=== PATIENT | female | born 1995 | race Caucasian/White ===

== ENCOUNTER 2020-03-30 12:08 | Emergency (ER) | payer OTHER, SELFPAY ==
[2020-03-30 12:30] VITALS: BP 133/80; PULSE 100; RESP 20; TEMP 37.4; O2SAT 100
--- NOTE | 2020-03-30 14:21 | ED.URI ---
HPI - URI/Sore Throat General Chief Complaint: Upper Respiratory Infection Stated Complaint: Head and ears (COVID Exposure) Source: patient Mode of arrival: ambulatory Limitations: no limitations History of Present Illness MD elicited complaint: other (Chest tightness, shortness of breath) Review of Systems Review of Systems: Narrative: CONSTITUTIONAL: Denies fever, chills, or sweats. EYES: Denies visual changes, redness, or discharge. ENT: Reports congestion, loss of taste and smell CARDIOVASCULAR: Reports chest heaviness. RESPIRATORY: Reports cough and dyspnea. GASTROINTESTINAL: Denies abdominal pain, nausea, vomiting, or diarrhea. GENITOURINARY: Denies dysuria or hematuria. SKIN: Denies rash or itching. MUSCULOSKELETAL: Denies back pain, joint pain, or myalgia. NEUROLOGIC: Denies headache, numbness, dizziness, or weakness. PSYCHIATRIC: Denies anxiety or depression. [facility] Past Medical History Medical History (Updated 03/30/20 @ 14:47 by CECE Vanegas) No significant past medical history Surgical History Surgical History (Updated 03/30/20 @ 14:28 by CECE Vanegas) No significant past surgical history Family History Family History (Updated 03/30/20 @ 14:29 by CECE Vanegas) Other No significant family history Social History Social History (Updated 03/30/20 @ 14:43 by CECE Vanegas) Smoking status: Never smoker Alcohol intake: never Substance use: never Living arrangements: with family Exam Narrative: Exam Narrative: GENERAL: Well-appearing, well-nourished, and in no acute distress. HEAD: Normocephalic, atraumatic. EYES: EOMI. No redness or drainage. Conjunctiva are normal. ENT: Mucous membranes pink and moist. CHEST: No respiratory distress. Clear to auscultation. HEART: Regular rate and rhythm. EXTREMITIES: Normal range of motion. No edema. SKIN: Warm, dry, no rash. NEURO: No focal deficits. Alert and oriented x3. Gait steady. PSYCH: Normal affect. No signs of depression or anxiety. Course Vital Signs Vital signs: Vital Signs Temperature 37.4 C 03/30/20 12:30 Pulse Rate 100 03/30/20 12:30 Respiratory Rate 20 03/30/20 12:30 Blood Pressure 133/80 03/30/20 12:30 Pulse Oximetry 100 03/30/20 12:30 Temperature 37.4 C 03/30/20 12:30 Pulse Rate 100 03/30/20 12:30 Respiratory Rate 20 03/30/20 12:30 Blood Pressure 133/80 03/30/20 12:30 Pulse Oximetry 100 03/30/20 12:30 Reviewed. Patient has been instructed to follow-up with her PCP regarding her blood pressure. Transfer Transfered to: [facility] Transportation: Other (Personal vehicle, patient refuses [facility] by EMS) Transfer rationale: Higher level care and further diagnostic testing Accepting physician: Dr. Rdz, report given to PHOENIX Acuna at 1330 MDM - URI/Sore Throat [facility] Narrative Medical decision making narrative: Patient to be sent for further evaluation because of chest pain and shortness of breath in the emergency department. Patient agrees. Patient to go to [facility] at this time for further diagnostic testing and observation. Patient is aware that she is presumed positive Covid as has been was positive on 03/23. Patient instructed to go directly to the ED. patient is stable for transfer to the ED by private vehicle as she requests. Differential Diagnosis Differential diagnosis: Likely upper respiratory infection, sinusitis, viral infection, bronchitis and pharyngitis Lab Data Labs: Influenza A Screen Negative Reference Range: Negative Influenza B Screen Negative Reference Range: Negative Strep Screen Presumptive Negative *(Reference Range: Negative)* Critical Care Time Critical Care Time Critical Care Time: No Discharge Plan Discharge Clinical Impression:
== END 2020-03-30 13:30 | disposition short-term general hospital (02) ==
LOC: EXPBETH 12:23
PROVIDERS: Emergency Provider Nurse Practitioner; PCP Internal Medicine
DX: J06.9 Acute upper respiratory infection, unspecified (principal)
CPT/HCPCS: 87081; 87147; 87804; 87880; 99213; G0463

== ENCOUNTER 2020-05-17 08:17 | Emergency (ER) | payer OTHER, SELFPAY ==
[2020-05-17 08:25] VITALS: BP 150/84; PULSE 96; RESP 20; TEMP 36.4; O2SAT 100
--- NOTE | 2020-05-17 08:42 | ED.GENADULT ---
HPI - General Adult General Chief complaint: Ear Stated complaint: ear inf Source: patient Mode of arrival: ambulatory Limitations: no limitations History of Present Illness HPI narrative: Patient presents for evaluation of bilateral ear pain, left greater than the right for the last week. She noted a small amount of drainage from the left ear and middle of the week. She denies any tinnitus or hearing loss. She states her symptoms are worse when laying down and improved when sitting up. She has mild sinus congestion. She denies fever, chills, respiratory symptoms. No additional complaints or concerns. Related Data Home Medications Medication Instructions Recorded Confirmed norethindrone-e.estradiol-iron tablet 05/17/20 05/17/20 [04/29 (28)] Allergies Allergy/AdvReac Type Severity Reaction Status Date / Time Penicillins Allergy Hives Verified 05/17/20 08:28 Review of Systems Review of Systems: Narrative: CONSTITUTIONAL: Denies fever, chills, or sweats. EYES: Denies visual changes, redness, or discharge. ENT: Reports bilateral ear pain, left greater than the right. Reports clear drainage from left ear last week, now resolved. Reports mild sinus congestion. Denies sore throat. CARDIOVASCULAR: Denies chest pain, palpitations, or edema. RESPIRATORY: Denies cough or dyspnea. GASTROINTESTINAL: Denies abdominal pain, nausea, vomiting, or diarrhea. GENITOURINARY: Denies dysuria or hematuria. SKIN: Denies rash or itching. MUSCULOSKELETAL: Denies back pain, joint pain, or myalgia. NEUROLOGIC: Denies headache, numbness, dizziness, or weakness. PSYCHIATRIC: Denies anxiety or depression. [facility] Past Medical History Medical History No significant past medical history Surgical History Surgical History No significant past surgical history Family History Family History Mother No significant family history Father No significant family history Social History Social History Smoking status: Never smoker Alcohol intake: never Substance use: never Living arrangements: with family Gender identity (if verbalized by the patient): Female Sexual Orientation (if Verbalized by the Patient): Straight or Heterosexual Spiritual care concerns: No Exam Narrative: Exam Narrative: GENERAL: Well-appearing, well-nourished, and in no acute distress. HEAD: Normocephalic, atraumatic. EYES: PERRLA and EOMI. ENT: Nares clear, no rhinorrhea or epistaxis. Mucous membranes moist. Oropharynx without tonsillar hypertrophy exudate or other lesions. There is right middle ear fluid present. Pt has pain with movement of left pinna. There appears to be a TM perforation on left between 6-8 o'clock over her anatomical structure of ear canal partially obscures this for full visualization, further compounded by limited exam 2/2 pain. NECK: Supple. No adenopathy or masses. No carotid bruits or JVD CHEST: Clear to auscultation. No respiratory distress. No wheezes rales or rhonchi HEART: Regular rate and rhythm. No murmur heard. Normal peripheral pulses. ABDOMEN: Soft, nontender, nondistended, normal active bowel sounds. EXTREMITIES: Normal range of motion. No edema. SKIN: Warm, dry, no rash. NEURO: No focal deficits. Alert and oriented x3. PSYCH: Normal mood and affect. Course Course Emergency Course: This is a 24-year-old female who presents with bilateral ear pain, left greater than the right for the last week. She has had some clear drainage from the left ear. On physical exam there appears to be a perforation left TM from 6 to 8 o'clock position. However exam is somewhat limited due to swelling appearance of her ear canal, compounded by lack of tolerance of full exam secondary to pain.
== END 2020-05-17 09:06 | disposition home or self-care (01) ==
PROVIDERS: Emergency Provider Nurse Practitioner; PCP Internal Medicine
DX: H66.92 Otitis media, unspecified, left ear (principal)
CPT/HCPCS: 99213; G0463

== ENCOUNTER 2020-06-10 15:17 | Emergency (ER) | payer OTHER, SELFPAY ==
[2020-06-10 15:30] VITALS: BP 163/89; PULSE 114; RESP 14; TEMP 38; O2SAT 100
[2020-06-10 15:44] VITALS: BP 163/89; PULSE 114; RESP 14; TEMP 38; O2SAT 100
--- NOTE | 2020-06-10 16:08 | ED.EAR ---
HPI - Ear Problem General Chief complaint: Ear Stated complaint: Ear Infection Time Seen by Provider: 06/10/20 16:09 Source: patient and RN notes reviewed Mode of arrival: ambulatory Limitations: no limitations History of Present Illness HPI Narrative: 24 year old female who presents to [facility] care with complaints of fullness to her bilateral ears for the past 5 days with noted popping of her ears for the past 2 days. Patient denies any tinnitus or any hearing loss.Patient was seen in this clinic on May 17 and received antibiotic and ear drops which she states that she completed as prescribed. Patient reports that she has been taking some Tylenol sinus for her symptoms with no resolution of her symptoms. She reports also feelings of being dizzy at times. She denies any cough, no sore throat pain but does have some post nasal drainage, denies any shortness of breath. MD Complaint: other (ear popping and pressure) Location: left ear Duration: intermittent Severity: moderate Relieving factors: nothing Exacerbating factors: nothing Discharge from ear: Reports no Associated symptoms ear: rhinorrhea (post nasal drainage) Treatment prior to arrival: other (Tylenol sinus) Related Data Home Medications Medication Instructions Recorded Confirmed norethindrone-e.estradiol-iron 1 tablet PO DAILY 06/10/20 06/10/20 [04/29 (28)] Allergies Allergy/AdvReac Type Severity Reaction Status Date / Time Penicillins Allergy Hives Verified 06/10/20 15:42 Review of Systems Review of Systems: Narrative: CONSTITUTIONAL: Denies known fever, chills, or sweats.is febrile at 38C at triage EYES: Denies visual changes, redness, or discharge. ENT: Denies rhinorrhea, congestion, sore throat, or otalgia.voices fullness popping to ears CARDIOVASCULAR: Denies chest pain, palpitations, or edema. RESPIRATORY: Denies cough or dyspnea. GASTROINTESTINAL: Denies abdominal pain, nausea, vomiting, or diarrhea. GENITOURINARY: Denies dysuria or hematuria. SKIN: Denies rash or itching. MUSCULOSKELETAL: Denies back pain, joint pain, or myalgia. NEUROLOGIC: Denies headache, numbness, or weakness.intermittent dizziness voiced PSYCHIATRIC: Denies anxiety or depression. All systems reviewed & are unremarkable except as noted in HPI and below PMFSH Past Medical History Medical History (Updated 06/12/20 @ 09:54 by Bella Sanderson NP) COVID-19 recovered No significant past medical history Surgical History Surgical History (Updated 06/12/20 @ 09:54 by Bella Sanderson NP) H/O arthroscopy of left knee Family History Family History Mother No significant family history Father No significant family history Social History Social History Smoking status: Never smoker Alcohol intake: never Substance use: never Gender identity (if verbalized by the patient): Female Spiritual care concerns: No Comments At time of signature, agree with nursing past medical, surgical, social and family history. There is no relevant family history pertinent to the presenting complaint Exam Narrative: Exam Narrative: GENERAL: Well-appearing, well-nourished, and in no acute distress. HEAD: Normocephalic, atraumatic. EYES: PERRLA and EOMI.no nystagmus ENT: Nares clear, no rhinorrhea or epistaxis.post nasal drainage Mucous membranes moist.Right TM normal with dull light reflex, Left TM has partial perforation between 6 and 8 o'clock with dullness of membrane, no drainage noted or swelling of ear canal. NECK: Supple.no lymphadenopathy CHEST: Clear to auscultation. No respiratory distress.SAO2 100% on room air HEART: Regular rate and rhythm. No murmur heard. Normal peripheral pulses. ABDOMEN: Soft, nontender, nondistended, normal active bowel sounds. EXTREMITIES: Normal range of motion. No edema. SKIN: Warm, dry, no rash. NEURO: No focal deficits. A
== END 2020-06-10 16:33 | disposition home or self-care (01) ==
PROVIDERS: Emergency Provider Registered Nurse
DX: H66.92 Otitis media, unspecified, left ear (principal); J06.9 Acute upper respiratory infection, unspecified; Z86.16 Personal history of COVID-19
CPT/HCPCS: 99213; G0463

== ENCOUNTER 2022-04-29 09:34 | Emergency (ER) | payer OTHER, SELFPAY ==
[2022-04-29 09:42] VITALS: BP 118/74; PULSE 82; RESP 16; TEMP 36.9; O2SAT 99
--- NOTE | 2022-04-29 10:22 | ED.URI ---
HPI - URI/Sore Throat General Chief Complaint: Upper Respiratory Infection Stated Complaint: sinus congestion/sore throat Time Seen by Provider: 04/29/22 10:22 Source: patient, RN notes reviewed and old records reviewed Mode of arrival: ambulatory Limitations: no limitations History of Present Illness HPI Narrative: 26 year old female who presents to [facility] care with complaints of 10 day history of sinus drainage and congestion with sore throat for one week with cough and headache for past 5 days. Patient reports that she has had had thick nasal congestion and post nasal drainage in throat. Patient denies any ear pain or any shortness of breath has been taking DayQuil and Ibuprofen for her symptoms. Patient has taken 2 home COVID tests which were negative. Patient has had COVID vaccinations and Booster, no flu shot. MD elicited complaint: sore throat, rhinorrhea, nasal congestion, sinus pain and other (headache) Onset (ago): day(s) (10) Pain scale (0-10): 4 Able to tolerate fluids by mouth: Yes Treatments prior to arrival: ibuprofen (bu) and other (DayQuil) Related Data Home Medications Medication Instructions Recorded Confirmed norethindrone 1 mg-ethinyl 1 tablet PO DAILY 04/29/22 04/29/22 estradiol 20 mcg (21)-iron 75 mg (7) tablet (Blisovi Fe 04/29 (28)) sertraline 100 mg tablet 100 mg PO DAILY 04/29/22 04/29/22 Allergies Allergy/AdvReac Type Severity Reaction Status Date / Time Penicillins Allergy Intermediate Hives Verified 04/29/22 09:58 Review of Systems Review of Systems: CONSTITUTIONAL: Denies malaise, chills, sweats, or fever. EYES: Denies visual changes, redness, or discharge. ENT: Reports rhinorrhea, congestion, sinus pain, no otalgia positive for sore throat. CARDIOVASCULAR: Denies chest pain, palpitations, or edema. RESPIRATORY: Reports cough.? Denies dyspnea. GASTROINTESTINAL: Denies abdominal pain, nausea, vomiting, diarrhea SKIN: Denies rash or itching. MUSCULOSKELETAL: Denies myalgia. NEUROLOGIC: Reports headache. All systems reviewed & are unremarkable except as noted in HPI and below PMFSH Past Medical History Medical History (Updated 04/30/22 @ 07:45 by Bella Sanderson NP) Anxiety COVID-19 recovered Surgical History Surgical History (Updated 04/30/22 @ 07:46 by Bella Sanderson NP) H/O arthroscopy of left knee ACL repair Family History Family History Mother No significant family history Father No significant family history Social History Social History Smoking status: Never smoker Alcohol intake: never Substance use: never Living arrangements: with family Gender identity (if verbalized by the patient): Female Sexual Orientation (if Verbalized by the Patient): Straight or Heterosexual Spiritual care concerns: No Comments At time of signature, agree with nursing past medical, surgical, social and family history. There is no relevant family history pertinent to the presenting complaint Exam Narrative: GENERAL: Well-appearing, well-nourished, and in no acute distress. HEAD: Normocephalic EYES: PERRLA, conjunctivae clear ENT: Nares clear, turbinates edematous and erythematous, clear discharge, sinus pressure and frontal headache. Mucous membranes moist. TM pearly downey with dull light reflex bilaterally; no tragal tenderness. Oropharynx erythematous without lesions. Tonsils not enlarged and without exudate, no drooling, no hoarseness, no trismus, uvula midline.post nasal drainage thick brown and yellow. NECK: Supple. No lymphadenopathy CHEST: Clear to auscultation, breath sounds equal. No wheezing, rhonchi, rales, or stridor. No respiratory distress, speaks in full sentences.cough, SAO2 99% on room air HEART: Regular rate and rhythm. No murmur heard. SKIN: Warm, dry, no rash. NEURO: Alert and oriented x3. PSYCH: N
== END 2022-04-29 10:42 | disposition home or self-care (01) ==
PROVIDERS: Emergency Provider Registered Nurse
DX: J32.9 Chronic sinusitis, unspecified (principal); R05.9 Cough, unspecified
CPT/HCPCS: 99213; G0463

== ENCOUNTER 2023-05-13 17:01 | Emergency (ER) | payer OTHER, SELFPAY ==
[2023-05-13 17:16] VITALS: BP 134/85; PULSE 114; RESP 16; TEMP 36.7; O2SAT 100
--- NOTE | 2023-05-13 17:59 | ED.URI ---
HPI - URI/Sore Throat General Chief Complaint: Upper Respiratory Infection Stated Complaint: throat Time Seen by Provider: 05/13/23 17:40 Source: patient, RN notes reviewed and old records reviewed Mode of arrival: ambulatory Limitations: no limitations History of Present Illness HPI Narrative: 27 year old female who presents to [facility] Care with complaints of sore throat that started the first part of the week and left ear pain today.. Patient reports that she has some sinus drainage and initially thought that it was just sinus congestion related to allergies.. Today she had increase in sore throat and sinus drainage and also body aches and ear pain to left ear. Patient reports that she has been taking Ibuprofen and also dayQuil for her symptoms. Patient reports that she has had positive strep exposure.. MD elicited complaint: sore throat and other (Left ear pain) Onset (ago): day(s) (4-5) Pain scale (0-10): 3 Able to tolerate fluids by mouth: Yes Treatments prior to arrival: ibuprofen and other (DayQuil) Related Data Home Medications Medication Instructions Recorded Confirmed norethindrone 1 mg-ethinyl 1 tablet PO DAILY 04/29/22 04/29/22 estradiol 20 mcg (21)-iron 75 mg (7) tablet (Blisovi Fe 04/29 (28)) sertraline 100 mg tablet 100 mg PO DAILY 04/29/22 04/29/22 lisinopril 10 tablet 05/13/23 mg-hydrochlorothiazide 12.5 mg tablet Allergies Allergy/AdvReac Type Severity Reaction Status Date / Time Penicillins Allergy Intermediate Hives Verified 05/13/23 17:09 Review of Systems Review of Systems: CONSTITUTIONAL: Reports malaise, chills, sweats, or fever. EYES: Denies visual changes, redness, or discharge. ENT: Reports rhinorrhea, congestion, sinus pain, left otalgia and sore throat. CARDIOVASCULAR: Denies chest pain, palpitations, or edema. RESPIRATORY: Reports cough.? Denies dyspnea. GASTROINTESTINAL: Denies abdominal pain, nausea, vomiting, diarrhea SKIN: Denies rash or itching. MUSCULOSKELETAL:reports myalgia. NEUROLOGIC: Denies headache. All systems reviewed & are unremarkable except as noted in HPI and below PMFSH Past Medical History Medical History (Updated 05/15/23 @ 13:18 by Bella Sanderson NP) Anxiety COVID-19 recovered Hypertension Surgical History Surgical History (Updated 05/15/23 @ 13:19 by Bella Sanderson NP) H/O arthroscopy of left knee ACL repair Previous section Family History Family History Mother No significant family history Father No significant family history Social History Social History Smoking status: Never smoker Alcohol intake: never Substance use: never Living arrangements: with family Gender identity (if verbalized by the patient): Female Sexual Orientation (if Verbalized by the Patient): Straight or Heterosexual Spiritual care concerns: No Comments At time of signature, agree with nursing past medical, surgical, social and family history. There is no relevant family history pertinent to the presenting complaint Exam Narrative: GENERAL: Well-appearing, well-nourished, and in no acute distress. HEAD: Normocephalic EYES: PERRLA, conjunctivae clear ENT: Nares clear, turbinates edematous and erythematous, clear light yellow discharge. Mucous membranes moist.Left TM red,Right TM pearly downey with dull light reflex; no tragal tenderness. Oropharynx erythematous without lesions. Tonsils red enlarged and without exudate, no drooling, no hoarseness, no trismus, uvula midline.post nasal drainage NECK: Supple. lymphadenopathy CHEST: Clear to auscultation, breath sounds equal. No wheezing, rhonchi, rales, or stridor. No respiratory distress, speaks in full sentences.SAO2 100% on room air HEART: Regular rate and rhythm. No murmur heard. SKIN: Warm, dry, no rash. NEURO: Alert and oriented x
== END 2023-05-13 18:13 | disposition home or self-care (01) ==
PROVIDERS: Emergency Provider Registered Nurse
DX: J02.0 Streptococcal pharyngitis (principal); H65.02 Acute serous otitis media, left ear; I10 Essential (primary) hypertension; F41.9 Anxiety disorder, unspecified; Z86.16 Personal history of COVID-19
CPT/HCPCS: 87880; 99213; G0463